=== PATIENT | female | born 1985 | race American Indian/Alaskan Native ===

== ENCOUNTER 2021-10-17 01:20 | Inpatient (IN) | payer MEDICAID ==
[2021-10-17] MEDS ORDERED: Acetaminophen 325 MG Tab PO PRN ×2 (01:39→06:34)
[2021-10-17] MEDS ORDERED: Sodium Chloride 0.9% 10 ML Syringe FLUSH PRN ×2 (01:39→06:34)
[2021-10-17] MEDS ORDERED: Misoprostol 400 MCG (4 X 100 MCG TAB) RECTAL PRN ×2 (01:39→06:34)
[2021-10-17] MEDS ORDERED: Ondansetron 4 MG/2 ML SDV IVPUSH PRN (01:39)
[2021-10-17] MEDS ORDERED: Carboprost Tromethamine 250 MCG/1 ML Amp IM PRN ×2 (01:39→06:34)
[2021-10-17] MEDS ORDERED: Tranexamic Acid 1,000 MG in Sodium Chloride 0.9% 100 ML IV PRN ×2 (01:39→06:34)
[2021-10-17] MEDS ORDERED: Lidocaine 1% 30 ML SDV INJECT PRN (01:39)
[2021-10-17] MEDS ORDERED: Lactated Ringers 1,000 ML IV ONE (01:39)
[2021-10-17] MEDS ORDERED: Penicillin G Potassium 5 MILLUNITS in Sodium Chloride 0.9% 100 ML IV ONE (01:39)
[2021-10-17] MEDS ORDERED: Methylergonovine 0.2 MG/1 ML Amp IM PRN (01:39)
[2021-10-17] MEDS: Lactated Ringers 1,000 ML IV SCH ×2 (01:45→02:58)
[2021-10-17] MEDS ORDERED: Oxytocin/Normal Saline 30 UNIT/500 ML BAG IV SCH (01:45)
[2021-10-17] MEDS ORDERED: Penicillin G Potassium 5,000,000 Unit Vial ONE (02:14)
[2021-10-17] MEDS ORDERED: Sodium Bicarbonate 4.2% 2.5 MEQ/5 ML SDV ONE (02:59)
[2021-10-17] MEDS ORDERED: fentaNYL 100 MCG/2 ML SDV ONE (02:59)
[2021-10-17] MEDS ORDERED: EPINEPHrine 1 MG/ML SDV ONE (03:02)
--- NOTE | 2021-10-17 03:21 | PCM.SN.2 ---
- Free Text/Narrative Note: Intrathecal. Sitting position, sterile prep and drape. 1% lidocaine for skinwheal to L2 L3 interspace, introducer, 24 ga Pencan x 1. Pos CSF. neg heme, neg parasthesia. 0.1 ml 1:1000 pf epi, 15 mcg pf sufenta, 35 mcg pf fentanyl, 0.4 ml pf NS and 6 mg of 0.75% pf Marcaine injected after CSF aspiration. Pt to L lateral position. Procedure time 0255 to 0331
[2021-10-17 03:52] LABS: AMPHETAMINES,URINE NEGATIVE (NEGATIVE); BARBITURATES,URINE NEGATIVE (NEGATIVE); BENZODIAZEPINE,URINE NEGATIVE (NEGATIVE); MDMA (ECSTASY), URINE NEGATIVE (NEGATIVE); METHADONE,URINE NEGATIVE (NEGATIVE); METHAMPHETAMINES,URINE NEGATIVE (NEGATIVE); OPIATES,URINE NEGATIVE (NEGATIVE); OXYCODONE,URINE NEGATIVE (NEGATIVE); PHENCYCLIDINE,URINE NEGATIVE (NEGATIVE); TCA,URINE NEGATIVE (NEGATIVE)
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
[2021-10-17] MEDS ORDERED: Penicillin G Potassium 3 MILLUNITS in Sodium Chloride 0.9% 100 ML IV SCH (05:30)
[2021-10-17] MEDS ORDERED: Oxytocin 10 Units/1 ML SDV IM PRN (06:34)
[2021-10-17] MEDS ORDERED: Simethicone 80 MG Tab.Chew PO PRN (06:34)
[2021-10-17] MEDS ORDERED: Benzocaine/Menthol 20%-0.5% Spray 78 GM Cannister TOP PRN (06:34)
--- NOTE | 2021-10-17 07:08 | OBOUT ---
DATE: 10/17/2021 DATE AND TIME OF NST: 10/17/2021. Time 1:50 to 2:10. REASON FOR NST: 1. Intrauterine at 38 and 2/7 weeks, confirmed with 30 and 2/7 ultrasound. 2. History of GBS positive infant. 3. Active labor upon admission. 4. Spontaneous rupture of membranes noted at 0001 hours on 10/17 2021. 5. Bilobed placenta. 6. Positive urine drug screen for THC on 08/24/2021. 7. Bacterial vaginosis in , treated 08/24/2021. 8. History of breech presentation, 09/26 on ultrasound, by vertex on 10/03 by ultrasound and by exam on 10/10/2021 and vertex by exam on date of admission. 9. G11, P7-1-2-8. NONSTRESS TEST INTERPRETATION: During this time period, heart tone at baseline is approximately 120 and at least two 15 x 15 beats per minute acceleration, making this strip reactive as well as reassuring. Tocometer reveals potential for contractions which the patient feels. ASSESSMENT: 1. Nonstress test, reactive and reassuring. 2. Tocometer with contractions. Blood pressure 117/67, heart rate 84. Patient feels afebrile. PLAN: The patient is being admitted with gross rupture of membranes in active labor. Please see H and P done in conjunction with MEHRAN Moseley. I did evaluate the patient with her and agree with her H and P and will make changes appropriately. For this H and P, records were called for, reviewed as noted, summarized and supplemented by patient history as well as review of systems reviewed fully and felt to be contributory as noted. Please see her H and P for further details. [facility] /[id number] SUREKHA
--- NOTE | 2021-10-17 08:59 | PN ---
DATE: 10/17/2021 SUBJECTIVE: The patient is breathing through her contractions. She was put on oxygen, has been doing some positional changes as recurrent variable-type decelerations noted with contractions as low as into the 70s and 60s at times, and the patient had an episode of vomiting. Therefore, bed was cleaned and the patient was repositioned. OBJECTIVE: heart tones currently in the 120s. Acceleration noted with vaginal exam. She is 4+ cm, 90% to 100% effaced, 0 station, vertex suspected, and IUPC placed after discussion with the patient for potential amnioinfusion and further monitoring. She understood and agreed. Subsequently, this was placed and confirmed with cough. ASSESSMENT AND PLAN: Intrauterine at 38-2/7 weeks, confirmed with 30- 2/7 weeks ultrasound, in active labor with spontaneous rupture of membranes shortly after midnight on 10/17/2021, date of admission, that has had recurrent variable decelerations. Intrauterine pressure catheter has been placed. We will continue to monitor and if need be, we will start amnioinfusion. Most likely, we will start with lactated Ringer's 250 mL bolus over 30 to 60 minutes and then 200 mL/h per up-to-date recommendations. We will continue to follow clinically and closely at this time, however. The patient understands and agrees with above treatment plan. [facility] /[id number]
--- NOTE | 2021-10-17 08:59 | DEL ---
DATE: 10/17/2021 PREOPERATIVE DIAGNOSES: 1. Intrauterine at 38-2/7 weeks confirmed with 30-2/7 week ultrasound. 2. Active labor upon admission. 3. Spontaneous rupture of membranes shortly after midnight on 10/17/2021. 4. History of group B Streptococcus positive infant, penicillin given. 5. Bilobed placenta on ultrasound. 6. Positive urine drug screen for tetrahydrocannabinol on 08/24/2021. 7. Bacterial vaginosis in , treated 08/24/2021. 8. History of breech, 09/26/2021. Ultrasound followed by vertex on ultrasound on 10/03/2021 and vertex by exam on 10/10 and upon admission. 9. G11, P7-1-2-8. POSTOPERATIVE DIAGNOSES: 1. Intrauterine at 38-2/7 weeks confirmed with 30-2/7 week ultrasound, delivered. 2. Active labor upon admission. 3. Spontaneous rupture of membranes shortly after midnight on 10/17/2021. 4. History of group B Streptococcus positive , penicillin given. 5. Bilobed placenta on ultrasound. Placenta with septum confirmed with evaluation and it was sent after delivery of placenta. 6. Positive urine drug screen for tetrahydrocannabinol on 08/24/2021. 7. Bacterial vaginosis in , treated 08/24/2021. 8. History of breech, 09/26/2021. Ultrasound followed by vertex on ultrasound on 10/03/2021 and vertex by exam on 10/10 and upon admission. 9. G11, P7-1-2-8. 10.Nuchal cord x2, reduced bluntly at delivery. PROCEDURE PERFORMED: Nonstress test followed by intrauterine pressure catheter and spontaneous vaginal delivery on 10/17/2021. [employer] DEVELOPER: Ilene Moseley, MS3 ANESTHESIA/ANALGESIA: The patient did receive an intrathecal in the first stage of labor. ESTIMATED BLOOD LOSS: 150 mL. FINDING: Male, score pending, weight 6 pounds 3 ounces. SUMMARY OF EVENTS: The patient is a 36-year-old G11, P7-1-2-8 intrauterine at 38-2/7 weeks, confirmed with 30-2/7 week ultrasound, presented in active labor. Spontaneous rupture of membranes shortly after midnight on date of admission. Had a history of GBS positive infant and did receive penicillin as soon as possible upon admission. She underwent an NST, and then had some repetitive variable decelerations that were deep. IUPC was placed for monitoring and potential for amnioinfusion. Did resolve and became less severe with positional changes and oxygen. Subsequently, the patient continued through labor. Requested intrathecal. Received one and then was found to be complete and I was called to the room at this time as variable decelerations were noted. Upon my evaluation, she was found to be in the second stage of labor. I donned sterile gown and gloves, and with the patient pushing with contractions, vertex was delivered in an CHON presentation with nuchal cord x2 reduced bluntly at delivery followed by anterior and posterior shoulders as well as rest of the without difficulty. Mouth and nares were suctioned. Cord was doubly clamped, cut, and infant was resuscitated on mother's abdomen. Approximately 10 mL of cord blood was obtained for labs. Placenta then delivered with gentle cord traction and fundal massage within 15 minutes. Perineum, vagina, and perirectal areas were examined without any tears or lacerations. Evaluation of the placenta after delivery of the placenta did reveal a septum through the middle of the placenta consistent with the findings on ultrasound. Mother and are currently stable at time of dictation. [facility] /[id number]
[2021-10-17] MEDS: Prenatal Multivitamin with Calcium/Folic Acid/Iron Tab PO SCH (10:48)
[2021-10-17] MEDS: Ibuprofen 800 MG Tab PO PRN ×2 (12:05→20:48)
[2021-10-17] MEDS: Docusate Sodium 100 MG Cap PO PRN (20:48)
[2021-10-18] MEDS: Docusate Sodium 100 MG Cap PO PRN (08:20)
[2021-10-18] MEDS: Ibuprofen 800 MG Tab PO PRN ×2 (08:20→16:56)
[2021-10-18] MEDS: Prenatal Multivitamin with Calcium/Folic Acid/Iron Tab PO SCH (08:20)
[2021-10-18] MEDS ORDERED: Sodium Chloride 0.9% 20 ML SDV ONE (16:56)
[2021-10-18] MEDS ORDERED: Sodium Bicarbonate 4.2% 2.5 MEQ/5 ML SDV ONE (16:56)
[2021-10-18] MEDS ORDERED: fentaNYL 100 MCG/2 ML SDV ITHECAL ONE (16:56)
[2021-10-18] MEDS ORDERED: EPINEPHrine 1 MG/ML SDV ONE (16:56)
[2021-10-19] MEDS: Ibuprofen 800 MG Tab PO PRN (05:30)
[2021-10-19] MEDS: Docusate Sodium 100 MG Cap PO PRN (09:06)
[2021-10-19 09:07] VITALS: BP 100/61; PULSE 74
[2021-10-19] MEDS: Prenatal Multivitamin with Calcium/Folic Acid/Iron Tab PO SCH (09:07)
--- NOTE | 2021-10-19 09:14 | PN ---
DATE: 10/18/2021 SUBJECTIVE: Patient is resting comfortably in bed, bonding with . Complains only of feeling sore in right lower quadrant, however, soreness is improving and well controlled by Tylenol. REVIEW OF SYSTEMS: Denies any signs and symptoms of preeclampsia or hemorrhage. No signs or symptoms of endometritis, chorioamnionitis. OBJECTIVE: Vitals: Temperature 98.2, heart rate 70, blood pressure 107/70, respiratory rate 16. General: Appears well. In good spirits. HEENT: Unremarkable. Heart: Regular rate and rhythm without murmur. Lungs: Clear to auscultation bilaterally. Abdomen: Soft, mildly tender on palpation of right uterine fundus. Uterine fundus palpates approximately 3 finger widths below umbilicus. Extremities: No edema. No clonus. Neurologic: No obvious neurologic deficit. ASSESSMENT: 1. Intrauterine at 38-2/7 weeks, now delivered. 2. Active labor upon admission. 3. Spontaneous rupture of membranes shortly after midnight on 10/17/2021. 4. History of group B strep positive , penicillin given. 5. Bilobed placenta on ultrasound, placenta with septum confirmed with evaluation and it was sent after delivery of placenta. 6. Positive urine drug screen for THC on 08/24/2021, as well positive urine drug screen upon admission on 10/17/2021. 7. Bacterial vaginosis in , treated. 8. History of breech presentation on 09/26/2021 ultrasound, followed by vertex presentation on 10/03/2021, and vertex on exam on 10/10 and upon admission. 9. G11, now P 8-1-2-8. 10.Nuchal cord x2 reduced bluntly at delivery. PLAN: Continue normal cares. Anticipate discharge home on 10/19/2021. Seen with medical student. Patient was personally seen and examined with the medical student practitioner student, Davi Paulino. I reviewed the noted scribed on my behalf and necessary changes have been made to reflect my opinion on the history, exam, assessment, and plan [facility] /[id number] MTDSugey
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
== END 2021-10-19 13:05 | disposition home or self-care (01) | DRG 807 ==
LOC: DL.OBCHECK 01:20 → DL.OB 01:44 → OBSVTOIN 04:52
PROVIDERS: ADMIT Family Medicine; ATTEND Family Medicine
PROC: 10E0XZZ Delivery of Products of Conception, External Approach (ICD-10-PCS; principal; 2021-10-17)
PROC: 4A0HXCZ Measurement of Products of Conception, Cardiac Rate, External Approach (ICD-10-PCS; 2021-10-17)
PROC: 10H07YZ Insertion of Other Device into Products of Conception, Via Natural or Artificial Opening (ICD-10-PCS; 2021-10-17)
PROC: 3E0R3BZ Introduction of Anesthetic Agent into Spinal Canal, Percutaneous Approach (ICD-10-PCS; 2021-10-17)
DX: O99.824 Streptococcus B carrier state complicating childbirth (principal); Z37.0 Single live birth; Z3A.38 38 weeks gestation of pregnancy; O69.81X0 Labor and delivery complicated by cord around neck, without compression, not applicable or unspecified; O76 Abnormality in fetal heart rate and rhythm complicating labor and delivery; Z20.822 Contact with and (suspected) exposure to COVID-19
CPT/HCPCS: 01967; 36415; 51701; 59409; 80305-QW; 85027; A9270-GY; J0171; J2405; J2540; J2590; J3010; J7120; U0002

== ENCOUNTER 2023-01-12 15:41 | Emergency (ER) | payer MEDICAID ==
[2023-01-12] MEDS ORDERED: Clindamycin HCl 150 MG Cap PO ONE (15:42)
[2023-01-12] MEDS ORDERED: Amoxicillin/Clavulanate K 875-125 MG Tab PO ONE (15:42)
[2023-01-12] MEDS ORDERED: Lidocaine 2% Viscous Solution 15 ML UD PO ONE (15:42)
[2023-01-12 16:04] VITALS: BP 113/90; PULSE 101
[2023-01-12] MEDS ORDERED: Amoxicillin/Clavulanate K 875-125 MG Tab ONE (16:31)
[2023-01-12] MEDS ORDERED: Clindamycin HCl 150 MG Cap ONE (16:31)
[2023-01-12] MEDS ORDERED: Lidocaine 2% Viscous Solution 15 ML UD ONE (16:32)
== END 2023-01-12 16:48 | disposition home or self-care (01) ==
LOC: DL.ED 15:41
DX: K04.7 Periapical abscess without sinus (principal)
CPT/HCPCS: 99282; A9270-GY

== ENCOUNTER 2023-06-17 18:59 | Emergency (ER) | payer MEDICAID ==
[2023-06-17 20:38] VITALS: BP 111/87; PULSE 66
== END 2023-06-17 20:32 | disposition home or self-care (01) ==
LOC: DL.ED 18:59
DX: K02.9 Dental caries, unspecified (principal); F17.210 Nicotine dependence, cigarettes, uncomplicated
CPT/HCPCS: 99282

== ENCOUNTER 2024-09-18 16:31 | Inpatient (IN) | payer MEDICAID ==
[2024-09-18] MEDS ORDERED: Acetaminophen/HYDROcodone 325-10 MG Tab PO PRN (17:17)
[2024-09-18] MEDS ORDERED: Sodium Chloride 0.9% 10 ML Syringe FLUSH PRN (17:17)
[2024-09-18] MEDS ORDERED: HYDROmorphone 0.5 MG/0.5 ML Syringe IVPUSH PRN (17:17)
[2024-09-18] MEDS ORDERED: Magnesium Hydroxide 400 MG/5 ML Susp 30 ML Cup PO PRN (17:17)
[2024-09-18] MEDS ORDERED: Albuterol/Ipratropium 3.0-0.5 MG/3 ML Neb Soln NEB PRN (17:17)
[2024-09-18] MEDS ORDERED: Sennosides/Docusate Sodium 50-8.6 MG Tab PO PRN (17:17)
[2024-09-18] MEDS ORDERED: Polyethylene Glycol 3350 Powder 17 GM Packet PO PRN (17:17)
[2024-09-18] MEDS ORDERED: Naloxone 2 MG/2 ML Syringe IVPUSH PRN (17:17)
[2024-09-18] MEDS ORDERED: traMADol 50 MG Tab PO PRN (17:30)
[2024-09-18] MEDS ORDERED: LORazepam 2 MG/ML SDV IVPUSH PRN (17:32)
[2024-09-18] MEDS ORDERED: Flumazenil 0.1 MG/ML 5 ML MDV IVPUSH PRN (17:32)
[2024-09-18] MEDS ORDERED: Al and Mag Hydroxide/Diphenhydramine/Lidocaine/Simethicone 237 ML Bottle PO PRN (17:33)
[2024-09-18 18:08] LABS: ANION GAP 13.5 mEq/L (7-13); BILIRUBIN TOTAL 0.8 mg/dL (0.2-1.0); BUN/CREATININE RATIO 19.2 (No establ ref range); CREATININE 0.78 mg/dL (0.55-1.02); EST CRCL DRUG DOSING (CG) 78.22 mL/min; POTASSIUM,K 4.5 mmol/L (3.5-5.1); PROTEIN TOTAL,TP 8.1 g/dL (6.4-8.2)
[2024-09-18] MEDS: Ampicillin/Sulbactam Na 1.5 GM in Sodium Chloride 0.9% 100 ML IV SCH (19:09)
[2024-09-18] MEDS: Pantoprazole 40 MG Vial IVPUSH ONE (19:09)
[2024-09-18] MEDS: Dexamethasone 4 MG/ML SDV IVPUSH ONE (19:10)
[2024-09-18] MEDS: Saccharomyces Boulardii (Probiotic) 250 MG Cap PO SCH (20:58)
[2024-09-18] MEDS: oxyCODONE ER 10 MG TAB.ER PO SCH (20:58)
[2024-09-18] MEDS: Temazepam 15 MG Cap PO PRN (21:00)
[2024-09-18] MEDS: hydrOXYzine HCl 25 MG Tab PO PRN (21:00)
[2024-09-18] MEDS: Naproxen 250 MG Tab PO SCH (21:00)
[2024-09-18] MEDS: Sodium Chloride 0.9% 10 ML Syringe FLUSH SCH (21:01)
[2024-09-19] MEDS: Famotidine 20 MG Tab PO SCH (05:31)
[2024-09-19 06:48] LABS: BASOPHILS PERCENT AUTO 0.2 % (0.0-1.0); HEMATOCRIT 37.3 % (37.0-47.0); HEMOGLOBIN 12.1 g/dL (12.0-16.0); LYMPHOCYTES PERCENT AUTO 14.8 % (20.5-50.1); MEAN CORPUSCULAR HEMOGLOBIN 32.5 pg (27.0-34.0); MEAN CORPUSCULAR HGB CONC 32.4 g/dL (33.0-35.0); MEAN CORPUSCULAR VOLUME 100.3 fL (80-100); MONOCYTES PERCENT AUTO 3.7 % (2-8); NEUTROPHILS PERCENT AUTO 81.3 % (42.2-75.2); PLATELET COUNT,PLT 225 10^3/uL (150-450); RED BLOOD CELL COUNT 3.72 10^6/uL (4.2-5.4); WHITE BLOOD CELL COUNT,WBC 6.3 10^3/uL (5.0-10.0)
[2024-09-19 07:09] LABS: ALBUMIN 3.1 g/dL (3.4-5.0); ANION GAP 12.6 mEq/L (7-13); BILIRUBIN TOTAL 0.4 mg/dL (0.2-1.0); BUN/CREATININE RATIO 13.7 (No establ ref range); C-REACTIVE PROTEIN 0.54 ng/dL (<=0.50); CALCIUM 8.3 mg/dL (8.5-10.1); CREATININE 0.73 mg/dL (0.55-1.02); EST CRCL DRUG DOSING (CG) 83.58 mL/min; MAGNESIUM 1.9 mg/dL (1.8-2.4); POTASSIUM,K 4.6 mmol/L (3.5-5.1); PROTEIN TOTAL,TP 6.7 g/dL (6.4-8.2)
[2024-09-19 07:14] LABS: A/G RATIO 0.86
[2024-09-19] MEDS: Dexamethasone 6 MG TABLET PO SCH (08:17)
[2024-09-19] MEDS: Acetaminophen/HYDROcodone 325-5 MG Tab PO PRN (10:29)
[2024-09-19] MEDS: Midodrine 5 MG Tab PO SCH (10:30)
[2024-09-19] MEDS: Citalopram 20 MG Tab PO SCH (10:30)
[2024-09-19] MEDS: Nicotine 21 MG/24 Hr Patch TRDERM SCH (10:31)
[2024-09-19] MEDS: Lactated Ringers 1,000 ML IV ONE (10:31)
[2024-09-19] MEDS: Ondansetron 4 MG/2 ML SDV IVPUSH PRN (12:44)
[2024-09-19] MEDS: VANCOmycin 1.5 GM/300 ML 1.5 GM in Premix Bag 1 BAG IV SCH ×2 (18:58→20:25)
[2024-09-19] MEDS: oxyCODONE ER 10 MG TAB.ER PO SCH (20:26)
[2024-09-19] MEDS ORDERED: Take Home: Lidocaine 2% Viscous Solution 15 ML UD, 2 Cup Pack PO PRN (21:08)
[2024-09-19] MEDS: Lidocaine 2% Viscous Solution 15 ML UD PO PRN (22:18)
[2024-09-19] MEDS: Acetaminophen 325 MG Tab PO PRN (22:19)
[2024-09-20 06:35] LABS: HEMATOCRIT 36.9 % (37.0-47.0); HEMOGLOBIN 11.9 g/dL (12.0-16.0); LYMPHOCYTES PERCENT AUTO 10.7 % (20.5-50.1); MEAN CORPUSCULAR HGB CONC 32.2 g/dL (33.0-35.0); MEAN CORPUSCULAR VOLUME 102.2 fL (80-100); MONOCYTES PERCENT AUTO 10.2 % (2-8); NEUTROPHILS PERCENT AUTO 79.1 % (42.2-75.2); PLATELET COUNT,PLT 248 10^3/uL (150-450); RED BLOOD CELL COUNT 3.61 10^6/uL (4.2-5.4); WHITE BLOOD CELL COUNT,WBC 13.8 10^3/uL (5.0-10.0)
[2024-09-20 07:00] LABS: ALANINE AMINOTRANSFERASE,ALT 44 U/L (14-59); ALBUMIN 3.2 g/dL (3.4-5.0); ALKALINE PHOSPHATASE 52 U/L (46-116); ANION GAP 9.5 mEq/L (7-13); ASPARTATE AMNIOTRANSFERASE,AST 24 U/L (15-37); BILIRUBIN TOTAL 0.4 mg/dL (0.2-1.0); BLOOD UREA NITROGEN,BUN 12 mg/dL (7-18); CALCIUM 8.5 mg/dL (8.5-10.1); CARBON DIOXIDE,CO2 27 mmol/L (21-32); CHLORIDE,CL 107 mmol/L (98-107); CREATININE 0.86 mg/dL (0.55-1.02); EST CRCL DRUG DOSING (CG) 70.94 mL/min; GLUCOSE RANDOM 107 mg/dL (70-99); MAGNESIUM 1.7 mg/dL (1.8-2.4); POTASSIUM,K 4.5 mmol/L (3.5-5.1); PROTEIN TOTAL,TP 6.6 g/dL (6.4-8.2); SODIUM,NA 139 mmol/L (136-145)
[2024-09-20 07:29] LABS: A/G RATIO 0.94; C-REACTIVE PROTEIN < 0.50 ng/dL (<=0.50); ESTIMATED GFR 89 mL/min (>=60)
[2024-09-20] MEDS: Dexamethasone 6 MG TABLET PO SCH (09:20)
[2024-09-20] MEDS: Magnesium Sulfate/Water Premix 2 GM in Premix Bag 1 BAG IV ONE (10:07)
[2024-09-20] MEDS: VANCOmycin 1.5 GM/300 ML 1.5 GM in Premix Bag 1 BAG IV SCH (18:28)
[2024-09-20 19:53] VITALS: BP 112/64; PULSE 69
[2024-09-20] MEDS: oxyCODONE ER 10 MG TAB.ER PO ONE (20:17)
== END 2024-09-20 20:30 | disposition home or self-care (01) | DRG 159 ==
LOC: DL.MS 16:31 → OBSVTOIN 17:17
PROVIDERS: ADMIT Internal Medicine; ATTEND Internal Medicine
DX: K04.7 Periapical abscess without sinus (principal); K02.9 Dental caries, unspecified; E83.42 Hypomagnesemia; G43.909 Migraine, unspecified, not intractable, without status migrainosus; F41.9 Anxiety disorder, unspecified; F32.A Depression, unspecified; I95.9 Hypotension, unspecified; F17.210 Nicotine dependence, cigarettes, uncomplicated; Z79.899 Other long term (current) drug therapy; Z98.890 Other specified postprocedural states; Z90.49 Acquired absence of other specified parts of digestive tract
CPT/HCPCS: 36415; 80053; 80202; 83605; 83735; 84145; 85025; 86140; 87040; 99223; 99232; 99238; A9270-GY; J0295; J1100; J2405; J2470; J3370; J3372; J3475; J3490; J7050; J7120; J8540